=== PATIENT | female | born 1930 | race Caucasian/White ===

== ENCOUNTER 2017-03-25 22:15 | Emergency (ER) | payer MEDICARE ==
[~2017-03-25] VITALS: Ht 157.5 cm; Wt 54.9 kg
[2017-03-25 22:15] VITALS: BP_SYST 150
[2017-03-25] MEDS ORDERED: MORPHINE 2 MG/ML INJ. SYRINGE IM ONE (22:45)
[2017-03-25 23:40] VITALS: BP_SYST 142
== END 2017-03-25 23:40 | disposition home or self-care (01) ==
LOC: SED 22:15
DX: M19.90 Unspecified osteoarthritis, unspecified site (principal); E78.5 Hyperlipidemia, unspecified; I48.91 Unspecified atrial fibrillation; E11.9 Type 2 diabetes mellitus without complications; I10 Essential (primary) hypertension; Z86.73 Personal history of transient ischemic attack (TIA), and cerebral infarction without residual deficits
CPT/HCPCS: 29505; 73564; 93005; 96372; 99284; J2270

== ENCOUNTER 2018-11-03 17:33 | Emergency (ER) | payer MEDICARE ==
[~2018-11-03] VITALS: Ht 160 cm; Wt 54.9 kg
[2018-11-03 17:33] VITALS: BP_SYST 164
[~2018-11-03 17:33] MED LIST: AMLO5TAB4 PO; DILT60TA3 PO; GABA-529 PO; HYDR100T25 PO; LIP10 PO; LIP40 PO; LOSA100T3 PO; SERT25TA PO; SERT50TA PO; WARF2TAB2 PO
[2018-11-03] MEDS ORDERED: NACL 0.9% 1,000 ML IV ONE (17:45)
[2018-11-03] MEDS ORDERED: ONDANSETRON HCL 4 MG/2 ML VIAL IVP ONE (17:45)
[2018-11-03 19:05] LABS: HEMATOCRIT 49.8 % (36-48); HEMOGLOBIN 16.6 g/dL (12.0-16.0); MEAN CORPUSCULAR HEMOGLOBIN 30 pg (27-31); MEAN CORPUSCULAR HGB CONC 33 % (32-36); MEAN CORPUSCULAR VOLUME 89 fL (79.0-98.0); PLATELET COUNT (AUTO) 199 K/uL (130-430); RED BLOOD CELL COUNT(AUTO) 5.61 MIL/uL (4.2-6.2); RED CELL DISTRIBUTION WIDTH 16.4 % (9.0-15.0); WHITE BLOOD COUNT (AUTO) 13.9 K/uL (4.8-10.8)
[2018-11-03 19:19] LABS: ANION GAP 11 (5-15); CHLORIDE 106 mmol/L (98-107); CREATININE 0.84 mg/dL (0.55-1.30); GLUCOSE 175 mg/dL (70-99); POTASSIUM 3.4 mmol/L (3.5-5.1); SODIUM SERUM 142 mmol/L (136-145); UREA NITROGEN, BLOOD 20 mg/dL (8-21)
[2018-11-03 19:24] LABS: ALANINE AMINOTRANSFERASE 24 U/L (12-78); ALBUMIN 3.7 g/dL (3.4-4.8); ASPARTATE AMINOTRANSFERASE 22 U/L (10-37); LIPASE 40 U/L (73-393); TOTAL BILIRUBIN 0.5 mg/dL (0.0-1.0)
[2018-11-03] MEDS ORDERED: CIPROFLOXACIN HCL 500 MG TABLET PO ONE (19:30)
[2018-11-03] MEDS ORDERED: LACTULOSE 20 GM/30 ML UDC PO ONE (19:30)
[2018-11-03] MEDS ORDERED: MORPHINE 4 MG/ML INJ. SYRINGE IVP ONE (19:30)
[2018-11-03] MEDS ORDERED: metroNIDAZOLE 500 mg/NS 100 ML IV ONE (19:30)
[2018-11-03 19:37] LABS: BAND % (MANUAL) 9 % (0-6); BASOPHILS % (MANUAL) 0 % (0-2); EOSINOPHILS % (MANUAL) 0 % (0-7); LYMPHOCYTES % (MANUAL) 6 % (20-46); MONOCYTES % (MANUAL) 3 % (0-11)
[2018-11-03 19:51] LABS: INR 2.2 (0.8-1.2); PROTHROMBIN TIME 21.7 SECS (9.5-12.5)
[2018-11-03 20:53] LABS: BILIRUBIN,URINE NEGATIVE (NEGATIVE); BLOOD, URINE 1+ (NEGATIVE); CLARITY/URINE CLEAR (CLEAR); COLOR,URINE YELLOW (YELLOW); GLUCOSE,URINE NEGATIVE (NEGATIVE); KETONES,URINE NEGATIVE (NEGATIVE); LEUKOCYTE ESTERASE ,URINE NEGATIVE (NEGATIVE); NITRITE, URINE NEGATIVE (NEGATIVE); PROTEIN URINE TRACE (NEGATIVE); UROBILINOGEN,URINE 0.2 (0.2-1.0)
[2018-11-03 21:06] LABS: BACTERIA,URINE FEW /HPF (None Seen); WBC,URINE 0-3 /HPF (0-3)
[2018-11-03 21:20] VITALS: BP_SYST 170
== END 2018-11-03 21:20 | disposition short-term general hospital (02) ==
LOC: SED 17:33
DX: K57.92 Diverticulitis of intestine, part unspecified, without perforation or abscess without bleeding (principal); K56.41 Fecal impaction; I48.91 Unspecified atrial fibrillation; E11.9 Type 2 diabetes mellitus without complications; I10 Essential (primary) hypertension; E78.5 Hyperlipidemia, unspecified; M19.90 Unspecified osteoarthritis, unspecified site; Z86.79 Personal history of other diseases of the circulatory system; Z79.899 Other long term (current) drug therapy
CPT/HCPCS: 36415; 74176; 80053; 81000; 83605; 83690; 85007; 85027; 85610; 85730; 87040; 93005; 96365; 96375; 99285; J2270; J2405; J3490; J7030